=== PATIENT | male | born 1970 | race Native Hawaiian/Other Pacific Islander ===

== ENCOUNTER → 2021-03-11 | Outpatient (CLI) | payer OTHER ==
--- NOTE | 2021-03-11 14:34 | Diagnostic Imaging Report ---
INDICATION: Left knee pain. FINDINGS: Two views of the left knee show no fracture, dislocation, or other abnormality. IMPRESSION: Normal left knee. Dictated by: Dictated on workstation # [id number]
== END ==
LOC: RAD 10:54
PROVIDERS: ATTEND Family Medicine
DX: Z02.71 Encounter for disability determination (principal); M25.562 Pain in left knee
CPT/HCPCS: 73560